=== PATIENT | male | born 1990 | race African-American/Black ===

== ENCOUNTER 2017-06-05 20:06 | Inpatient (IN) | payer SELFPAY ==
[~2017-06-05] VITALS: Ht 175.3 cm; Wt 73.5 kg
[2017-06-05] MEDS ORDERED: OLAN10TA3 PO (20:15)
[2017-06-05] MEDS ORDERED: DIVA500T35 PO (20:15)
[2017-06-05 21:28] LABS: BASOPHILS % (AUTO) 0.9 % (0.0-2.0); EOSINOPHILS % (AUTO) 4.5 % (1.0-6.0); HEMATOCRIT 41.3 % (41-53); HEMOGLOBIN 13.9 g/dL (13.5-17.5); LYMPHOCYTES # (AUTO) 1.5 K/uL (1.0-4.8); MEAN CORPUSCULAR HEMOGLOBIN 28.6 pg (26.0-34.0); MEAN CORPUSCULAR HGB CONC 33.7 G/dL (31.0-37.0); MEAN CORPUSCULAR VOLUME 85 fL (80-100); MONOCYTES % (AUTO) 13.8 % (2.0-9.0); NEUTROPHILS # (AUTO) 4.1 K/uL (1.8-7.7); NEUTROPHILS % (AUTO) 58.8 % (40.0-70.0); PLATELET COUNT (AUTO) 248 K/uL (150-450); RED BLOOD CELL COUNT(AUTO) 4.86 MIL/uL (4.50-5.90); RED CELL DISTRIBUTION WIDTH 14.5 % (11.5-14.5)
[2017-06-05 21:37] LABS: ANION GAP 6 mmol/L (8-16); CARBON DIOXIDE 30 mmol/L (22-29); CHLORIDE 104 mmol/L (98-107); CREATININE 0.92 mg/dL (0.60-1.30); GLOMERULAR FILTR. RATE CALC > 60 mL/min (>60); GLUCOSE,RANDOM 81 mg/dL (70-110); POTASSIUM 3.4 mmol/L (3.5-5.1); SODIUM SERUM 140 mmol/L (136-145); UREA NITROGEN, BLOOD 10 mg/dL (7-18)
[2017-06-05 21:43] LABS: ALANINE AMINOTRANSFERASE 26 U/L (12-78); ALBUMIN 3.9 g/dL (3.4-5.0); ALKALINE PHOSPHATASE 64 U/L (46-116); ASPARTATE AMINOTRANSFERASE 17 U/L (15-37); TOTAL PROTEIN, SERUM 7.7 g/dL (6.4-8.2)
[2017-06-05 21:46] LABS: VALPROIC ACID < 3 mcg/mL (50-100)
[2017-06-05] MEDS ORDERED: ZOLPIDEM TARTRATE 10 MG TABLET PO PRN (22:15)
[2017-06-05] MEDS ORDERED: POTASSIUM CHLORIDE 20 MEQ ER TABLET PO ONE (22:15)
[2017-06-05] MEDS ORDERED: OLANZapine 5 MG TABLET PO ONE (22:15)
[2017-06-05] MEDS ORDERED: OLANZapine 5 MG RAPDIS TABLET PO PRN (22:15)
[2017-06-05] MEDS ORDERED: LORazepam 2 MG TABLET PO PRN (22:15)
[2017-06-05 22:17] LABS: AMPHET/METH SCREEN,URINE NEGATIVE (NEGATIVE); BARBITURATE SCREEN, URINE NEGATIVE (NEGATIVE); BENZODIAZEPINES SCREEN,URINE NEGATIVE (NEGATIVE); CANNABINOID SCREEN,URINE NEGATIVE (NEGATIVE); COCAINE SCREEN,URINE NEGATIVE (NEGATIVE); METHADONE SCREEN, URINE NEGATIVE (NEGATIVE); OPIATE SCREEN,URINE NEGATIVE (NEGATIVE)
[2017-06-05 22:18] LABS: PHENCYCLIDINE SCREEN,URINE NEGATIVE (NEGATIVE)
[2017-06-06 05:55] LABS: CHOL/HDL RATIO 2.5 (4.2-7.3)
[2017-06-06 21:55] VITALS: BP 122/82
[2017-06-06] MEDS ORDERED: INFLUENZA VIRUS VACCINE QVS 2017-18 (3YR+)/PF 60 MCG/0.5 ML SYRINGE IM ONE (22:15)
[2017-06-07 06:44] VITALS: BP 116/66
[2017-06-07 08:10] VITALS: BP 115/64
[2017-06-07] MEDS ORDERED: DIVALPROEX SODIUM 500 MG DR TABLET PO SCH (09:45)
[2017-06-07] MEDS: OLANZapine 10 MG RAPDIS TABLET PO SCH (10:34)
[2017-06-07] MEDS: DIVALPROEX SODIUM 500 MG DR TABLET PO SCH ×2 (10:34→17:20)
[2017-06-07 16:00] VITALS: BP 117/87
[2017-06-07] MEDS ORDERED: ALBUTEROL SULFATE HFA 90 MCG/PUFF 8 GM INHALER IH PRN (21:45)
[2017-06-08 05:50] VITALS: BP 118/78
[2017-06-08 08:34] VITALS: BP 122/66
[2017-06-08] MEDS: DIVALPROEX SODIUM 500 MG DR TABLET PO SCH (09:11)
[2017-06-08] MEDS: OLANZapine 10 MG RAPDIS TABLET PO SCH (09:11)
== END 2017-06-08 17:22 | disposition home or self-care (01) | DRG 885 ==
LOC: EMS 20:10 → B3A 06-06 18:17
PROVIDERS: ADMIT Psychiatry & Neurology Psychiatry; ATTEND Psychiatry & Neurology Child & Adolescent Psychiatry
PROC: 3E0234Z Introduction of Serum, Toxoid and Vaccine into Muscle, Percutaneous Approach (ICD-10-PCS; principal; 2017-06-07)
DX: F20.9 Schizophrenia, unspecified (principal); R45.850 Homicidal ideations; J45.909 Unspecified asthma, uncomplicated; E87.6 Hypokalemia; F31.9 Bipolar disorder, unspecified; Z23 Encounter for immunization; Z88.8 Allergy status to other drugs, medicaments and biological substances
CPT/HCPCS: 84132; 90471; 99285; G0480

== ENCOUNTER 2017-06-10 18:20 | Inpatient (IN) | payer SELFPAY ==
[~2017-06-10] VITALS: Ht 172.7 cm; Wt 75.4 kg
[~2017-06-10 18:20] MED LIST: DIVA500T35 PO; OLAN10TA3 PO
[2017-06-10 20:13] LABS: BASOPHILS % (AUTO) 1.2 % (0.0-2.0); EOSINOPHILS % (AUTO) 5.3 % (1.0-6.0); HEMATOCRIT 42.5 % (41-53); HEMOGLOBIN 14.2 g/dL (13.5-17.5); LYMPHOCYTES # (AUTO) 1.9 K/uL (1.0-4.8); LYMPHOCYTES % (AUTO) 27.6 % (22.0-44.0); MEAN CORPUSCULAR HEMOGLOBIN 28.3 pg (26.0-34.0); MEAN CORPUSCULAR HGB CONC 33.4 G/dL (31.0-37.0); MEAN CORPUSCULAR VOLUME 85 fL (80-100); MONOCYTES # (AUTO) 0.5 K/uL (0.1-1.0); MONOCYTES % (AUTO) 7.6 % (2.0-9.0); NEUTROPHILS # (AUTO) 4.1 K/uL (1.8-7.7); NEUTROPHILS % (AUTO) 58.3 % (40.0-70.0); PLATELET COUNT (AUTO) 275 K/uL (150-450); RED BLOOD CELL COUNT(AUTO) 5.02 MIL/uL (4.50-5.90); RED CELL DISTRIBUTION WIDTH 13.9 % (11.5-14.5)
[2017-06-10 20:33] LABS: ALANINE AMINOTRANSFERASE 25 U/L (12-78); ALBUMIN 3.7 g/dL (3.4-5.0); ALKALINE PHOSPHATASE 86 U/L (46-116); ANION GAP 7 mmol/L (8-16); ASPARTATE AMINOTRANSFERASE 15 U/L (15-37); BILIRUBIN,TOTAL 0.3 mg/dL (0.1-1.0); CALCIUM, TOTAL 9.1 mg/dL (8.8-10.5); CARBON DIOXIDE 30 mmol/L (22-29); CHLORIDE 102 mmol/L (98-107); CREATININE 0.77 mg/dL (0.60-1.30); GLOMERULAR FILTR. RATE CALC > 60 mL/min (>60); GLUCOSE,RANDOM 92 mg/dL (70-110); POTASSIUM 4.3 mmol/L (3.5-5.1); SODIUM SERUM 139 mmol/L (136-145); TOTAL PROTEIN, SERUM 7.6 g/dL (6.4-8.2); VALPROIC ACID 5 mcg/mL (50-100)
[2017-06-10 20:46] LABS: UREA NITROGEN, BLOOD 11 mg/dL (7-18)
[2017-06-10] MEDS ORDERED: QUEtiapine FUMARATE 100 MG TABLET PO ONE (21:45)
[2017-06-10] MEDS ORDERED: DiphenhydrAMINE HCL 25 MG CAPSULE PO ONE (21:45)
[2017-06-10] MEDS ORDERED: LORazepam 2 MG TABLET PO ONE (21:45)
[2017-06-10 22:10] LABS: AMPHET/METH SCREEN,URINE NEGATIVE (NEGATIVE); BARBITURATE SCREEN, URINE NEGATIVE (NEGATIVE); BENZODIAZEPINES SCREEN,URINE NEGATIVE (NEGATIVE); CANNABINOID SCREEN,URINE NEGATIVE (NEGATIVE); COCAINE SCREEN,URINE NEGATIVE (NEGATIVE); METHADONE SCREEN, URINE NEGATIVE (NEGATIVE); OPIATE SCREEN,URINE NEGATIVE (NEGATIVE); PHENCYCLIDINE SCREEN,URINE NEGATIVE (NEGATIVE)
[2017-06-11 01:40] VITALS: BP 105/69
[2017-06-11] MEDS ORDERED: -PHARMACY VACCINE NOTE- MISC ONE (01:45)
[2017-06-11] MEDS ORDERED: ZOLPIDEM TARTRATE 10 MG TABLET PO PRN (01:45)
[2017-06-11] MEDS ORDERED: LORazepam 2 MG TABLET PO PRN (01:45)
[2017-06-11] MEDS ORDERED: HALOPERIDOL 5 MG TABLET PO PRN (01:45)
[2017-06-11 08:31] VITALS: BP 120/74
[2017-06-11] MEDS: DIVALPROEX SODIUM 500 MG DR TABLET PO SCH ×2 (10:58→17:03)
[2017-06-11 17:48] VITALS: BP 118/70
[2017-06-11] MEDS ORDERED: OLANZapine 10 MG TABLET PO SCH (21:00)
[2017-06-12 06:51] VITALS: BP 117/81
[2017-06-12] MEDS: DIVALPROEX SODIUM 500 MG DR TABLET PO SCH (07:48)
[2017-06-12 08:18] VITALS: BP 138/64
[2017-06-12 09:12] LABS: CHOL/HDL RATIO 2.6 (4.2-7.3)
== END 2017-06-12 15:20 | disposition home or self-care (01) | DRG 885 ==
LOC: EMS 18:24 → B3A 23:00
PROVIDERS: ADMIT Psychiatry & Neurology Child & Adolescent Psychiatry; ATTEND Psychiatry & Neurology Child & Adolescent Psychiatry
DX: F25.0 Schizoaffective disorder, bipolar type (principal); R45.851 Suicidal ideations; F41.9 Anxiety disorder, unspecified; J45.909 Unspecified asthma, uncomplicated; E87.6 Hypokalemia; Z88.8 Allergy status to other drugs, medicaments and biological substances; Z79.899 Other long term (current) drug therapy
CPT/HCPCS: 87081; 99285; G0480